=== PATIENT | female | born 1950 | race Caucasian/White ===

== ENCOUNTER 2019-06-11 19:54 | Emergency (ER) | payer MEDICARE, OTHER ==
[~2019-06-11] VITALS: Ht 170.2 cm; Wt 62.0 kg
[2019-06-11 19:59] VITALS: BP 163/97
== END 2019-06-12 01:42 | disposition home or self-care (01) ==
LOC: ED 22:52
DX: S93.111A Dislocation of interphalangeal joint of right great toe, initial encounter (principal); S91.111A Laceration without foreign body of right great toe without damage to nail, initial encounter; S51.012A Laceration without foreign body of left elbow, initial encounter; W01.0XXA Fall on same level from slipping, tripping and stumbling without subsequent striking against object, initial encounter; Y93.89 Activity, other specified; Y92.009 Unspecified place in unspecified non-institutional (private) residence as the place of occurrence of the external cause; Y99.8 Other external cause status
CPT/HCPCS: 12001; 12042; 90471; 90715